=== PATIENT | female | born 1950 | race Hispanic/Latino ===

== ENCOUNTER 2016-12-15 08:45 | Emergency (ER) | payer SELFPAY ==
[~2016-12-15] VITALS: Ht 165.1 cm; Wt 55.0 kg
[2016-12-15] MEDS ORDERED: GLUCOPHAGE500 MG PO (08:59)
[2016-12-15] MEDS ORDERED: DIABETA5 MG PO (09:02)
[2016-12-15] MEDS ORDERED: NAPROXEN500 MG PO (11:07)
[2016-12-15 11:12] VITALS: BP 154/80
== END 2016-12-15 11:14 | disposition home or self-care (01) ==
LOC: EME 08:45
DX: S20.20XA Contusion of thorax, unspecified, initial encounter (principal); S40.011A Contusion of right shoulder, initial encounter; W17.89XA Other fall from one level to another, initial encounter; Y92.810 Car as the place of occurrence of the external cause; E11.9 Type 2 diabetes mellitus without complications; Z79.84 Long term (current) use of oral hypoglycemic drugs
CPT/HCPCS: 71100; 73030; 99281; 99284; J1885